=== PATIENT | male | born 1975 | race Caucasian/White ===

== ENCOUNTER 2021-03-12 00:50 | Emergency (ER) | payer MEDICARE, OTHER ==
[~2021-03-12] VITALS: Ht 180.3 cm; Wt 86.4 kg
[2021-03-12 02:46] LABS: AMPHET/METH SCREEN,URINE NEGATIVE (NEGATIVE); BARBITURATE SCREEN, URINE NEGATIVE (NEGATIVE); BENZODIAZEPINES SCREEN,URINE NEGATIVE (NEGATIVE); CANNABINOID SCREEN,URINE POSITIVE (NEGATIVE); COCAINE SCREEN,URINE NEGATIVE (NEGATIVE); METHADONE SCREEN, URINE NEGATIVE (NEGATIVE); OPIATE SCREEN,URINE NEGATIVE (NEGATIVE)
[2021-03-12 02:47] LABS: PHENCYCLIDINE SCREEN,URINE NEGATIVE (NEGATIVE)
[2021-03-12] MEDS: BACITRACIN 0.9 GM PACKET OINTMENT TP ONE (02:55)
[2021-03-12] MEDS: PERTUSS(ACELL),DIPH,TET VAC/PF 0.5 ML SYRINGE IM. ONE (02:56)
[2021-03-12] MEDS: CEPHALEXIN MONOHYDRATE 500 MG CAPSULE PO ONE (02:57)
[2021-03-12] MEDS: DOXYCYCLINE HYCLATE 100 MG TABLET PO ONE (02:57)
[2021-03-12 03:12] VITALS: BP 129/77
[2021-03-23] MEDS ORDERED: BUSP15 PO (12:19)
[2021-03-23] MEDS ORDERED: ARIP10TA38 PO (12:20)
[2021-03-23] MEDS ORDERED: TRAZ-252 PO (12:20)
== END 2021-03-12 03:30 | disposition home or self-care (01) ==
LOC: EMS 00:58
DX: L03.115 Cellulitis of right lower limb (principal); M25.511 Pain in right shoulder; F17.210 Nicotine dependence, cigarettes, uncomplicated; F12.90 Cannabis use, unspecified, uncomplicated
CPT/HCPCS: 90471; 90715; 99283